=== PATIENT | male | born 2005 ===

== ENCOUNTER 2024-01-11 19:39 | Emergency (ER) | payer OTHER ==
[~2024-01-11] VITALS: Ht 165.1 cm; Wt 68.0 kg
[2024-01-11 23:32] VITALS: BP 117/54
== END 2024-01-11 23:31 | disposition home or self-care (01) ==
LOC: ED 19:39
DX: S01.81XA Laceration without foreign body of other part of head, initial encounter (principal); X58.XXXA Exposure to other specified factors, initial encounter; Y93.66 Activity, soccer
CPT/HCPCS: 99283